=== PATIENT | female | born 1990 | race Caucasian/White ===

== ENCOUNTER 2021-10-17 13:11 | Emergency (ER) | payer OTHER, SELFPAY ==
[2021-10-17 13:20] VITALS: BP 154/94; PULSE 90; RESP 18; TEMP 36.4; O2SAT 100
--- NOTE | 2021-10-17 13:50 | ED.WOUNDLAC ---
HPI - Wound/Laceration General Chief Complaint: Wound/Laceration Stated Complaint: dog bite Source: patient and RN notes reviewed Mode of arrival: ambulatory History of Present Illness HPI narrative: This is a 30-year-old female that presented to urgent care with a dog bite to her left pinky finger. 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 She noted that it had excessive bleeding which prompted her to come to urgent care. There are no signs and symptoms of infection on the affected finger. The patient denies SOB, neurovascular deficiency , pulses and circulation present ,CP, palpitation, extremity numbness, lightheadedness, dizziness, constipation, diarrhea, chills, or fever. Related Data Home Medications Medication Instructions Recorded Confirmed labetalol 10/17/21 sertraline mg 10/17/21 Allergies Allergy/AdvReac Type Severity Reaction Status Date / Time No Known Allergies Allergy Unverified 06/15/17 20:23 Review of Systems Review of Systems: A 14 organ system Review of Systems was performed and pertinent positives included in the HPI, otherwise remaining ROS is negative. [facility] Family History Family History (Updated 10/17/21 @ 13:52 by MIGUEL Vera-C) Other Family history non-contributory Exam Narrative: GENERAL: This is a well-nourished, well-developed patient, in no apparent distress. HEAD: normocephalic, atraumatic. EYES: PERRL. Sclera clear/white. Vision is grossly intact. EARS: External ears normal, auditory canals clear and without drainage, TMs normal without perforation. Hearing grossly intact. NOSE: External nose normal with no obvious nasal discharge, nares without redness, no rhinorrhea. THROAT: Mucous membranes moist, posterior pharynx clear. NECK: Neck supple, non-tender without lymphadenopathy, masses or thyromegaly. CARDIOVASCULAR: Regular rate and rhythm without murmurs, gallops, or rubs. RESPIRATORY: Clear to auscultation. Breath sounds equal bilaterally. No wheezes, rales, or rhonchi. GASTROINTESTINAL: Abdomen soft, non-tender, nondistended. Bowel sounds are active. No hepato-splenomegaly, or palpable masses. No guarding. SKIN: warm, intact with no suspicious lesions or rash, good texture and turgor. NEURO: awake, alert, and oriented to person, place and time. There were no obvious focal neurologic abnormalities. Steady gait EXTREMITIES: Normal range of motion. No edema. No calf tenderness. Negative Homans sign bilaterally. Left pinky finger with a small U-shaped laceration approximately 0.5X0.5 centimeters BACK: Nontender without deformity or crepitance. No flank tenderness. Course Course Emergency Course: Patient site cleaned with wound auto cleaner, triple antibiotic ointment placed on site cover with gauze and [place] Vital Signs Vital signs: Vital Signs Temperature 97.5 F L 10/17/21 13:20 Pulse Rate 90 10/17/21 13:20 Respiratory Rate 18 10/17/21 13:20 Blood Pressure 154/94 H 10/17/21 13:20 Pulse Oximetry 100 10/17/21 13:20 Temperature 97.5 F L 10/17/21 13:20 Pulse Rate 90 10/17/21 13:20 Respiratory Rate 18 10/17/21 13:20 Blood Pressure 154/94 H 10/17/21 13:20 Pulse Oximetry 100 10/17/21 13:20 MDM - Wound/Laceration Differential Diagnosis Differential diagnosis: Likely laceration, abrasion and other (Cellulitis) Discharge Plan Discharge Clinical Impression: Laceration Patient Disposition: Home, Self-Care Condition: Stable Instructions: Antibiotic Form, Animal Bite (ED) Additional Instructions: 1. Follow up with your provider within 1-2 weeks if condition worsens 2. Take prescription medication as ordered Notify your provider of any signs and symptoms of infection: Fever Foul Odor Discharge Heat at the Site: Increase in Pain: Pus Redness and Swelling Clean site with soap and water and apply triple antibio
== END 2021-10-17 13:53 | disposition home or self-care (01) ==
PROVIDERS: Emergency Provider Nurse Practitioner
DX: S61.257A Open bite of left little finger without damage to nail, initial encounter (principal); W54.0XXA Bitten by dog, initial encounter
CPT/HCPCS: 99212; G0463

== ENCOUNTER 2023-06-01 15:44 | Outpatient (CLI) | payer OTHER, SELFPAY ==
--- NOTE | ~2023-06-01 | XR_ITS ---
EXAMINATION: XR chest 2V DATE: 06/01/2023 16:07 INDICATION: Shortness of breath and cough TECHNIQUE: PA and lateral views of the chest were obtained. COMPARISON: None FINDINGS: Consolidation throughout the right middle lobe consistent with pneumonia. No other airspace opacities , pulmonary edema, pleural effusion or pneumothorax. Instantly noted normal variant azygos lobe and f issure at the right upper lung zone. The cardiomediastinal silhouette is normal. Visualized bones and soft tissues are unremarkable. IMPRESSION: 1. Right middle lobe pneumonia. Reviewed, dictated and finalized at location B.
== END 2023-06-01 15:45 | disposition home or self-care (01) ==
DX: R05.9 Cough, unspecified (principal); J18.9 Pneumonia, unspecified organism
CPT/HCPCS: 71046

== ENCOUNTER 2023-06-08 12:42 | Emergency (ER) | payer OTHER, SELFPAY ==
[2023-06-08] VITALS (14 sets, daily range): BP systolic 146–159; BP diastolic 83–99; PULSE 77–97; RESP 16–27; TEMP 36.4; O2SAT 95–97
--- NOTE | ~2023-06-08 | XR_ITS ---
EXAMINATION: XR chest 2V Exam Date/Time: 06/08/2023 17:22 CDT HISTORY: cough, recent pneumonia, SOB Comparison: 06/01/2023. RESULT: Lines, tubes, and devices: None. Lungs and pleura: Persistent right middle lobe airspace disease, with some interval improvement. Cardiomediastinal silhouette: Stable. Other: No acute osseous or upper abdominal finding. IMPRESSION: Improving right middle lobe pneumonia. Reviewed, dictated and finalized at location K.
--- NOTE | 2023-06-08 17:16 | ED.GENADULT ---
HPI - General Adult General Chief complaint: Unspecified <Crystal Chavarria PA-C - Last Filed: 06/08/23 18:23> Stated complaint: pneumonia-symptoms not better <BING Alford Last Filed: 06/08/23 18:23> Time Seen by Provider: 06/08/23 16:56 <BING Alford Last Filed: 06/08/23 18:23> History of Present Illness HPI narrative: 32-year-old female reports for evaluation for a productive cough x2 weeks. Patient states she called her PCP 10 days ago, was started on doxycycline and prednisone. A couple days later she developed hives, then obtained an x-ray which showed pneumonia. Her PCP switched her from doxycycline to Augmentin and azithromycin. States she has not missed any doses and has completed her course of medications other than 1 more dose of Augmentin she needs to take tonight. States she has mildly improved but still has a persistent productive cough which is worse at night. She denies sore throat, congestion, otalgia, chest pain, nausea or vomiting, abdominal pain, diarrhea, fever. Denies recent surgeries or hospitalizations. She lives at home. Patient states her urticaria persisted throughout her course of treatment with the azithromycin and Augmentin. States has been taking Zyrtec and Benadryl with some relief. 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 She denies lip swelling, tongue swelling, difficulty breathing, changes in detergents or lotions, new foods. <BING Alford Last Filed: 06/08/23 18:23> Related Data Home medications: Home Medications Medication Instructions Recorded Confirmed labetalol 100 mg tablet 10/17/21 sertraline 50 mg tablet mg 10/17/21 <BING Alford Last Filed: 06/08/23 18:23> Allergies/adverse reactions: Allergies Allergy/AdvReac Type Severity Reaction Status Date / Time No Known Allergies Allergy Unverified 06/15/17 20:23 <BING Alford Last Filed: 06/08/23 18:23> Review of Systems Review of Systems: CONSTITUTIONAL: Denies fever, chills EYES: Denies visual changes, redness, or discharge. ENT: Denies rhinorrhea, congestion, sore throat, or otalgia. CARDIOVASCULAR: Denies chest pain, palpitations, or edema. RESPIRATORY: See HPI GASTROINTESTINAL: Denies abdominal pain, nausea, vomiting, or diarrhea. GENITOURINARY: Denies dysuria or hematuria. SKIN: Denies rash or itching. MUSCULOSKELETAL: Denies back pain, joint pain, or myalgia. NEUROLOGIC: Denies headache, numbness, dizziness, or weakness. PSYCHIATRIC: Denies anxiety or depression. <Crystal Chavarria PA-C - Last Filed: 06/08/23 18:23> [facility] Family History Family History: Family History Other Family history non-contributory <Crystal Chavarria PA-C - Last Filed: 06/08/23 18:23> Exam Narrative: GENERAL: Well-appearing, in no acute distress. Patient resting comfortably in exam bed. She is pleasant and conversational. Speaking in full sentences. HEAD: Normocephalic EYES: PERRLA ENT: Nares clear. Mucous membranes moist. Oropharynx without tonsillar hypertrophy exudate or other lesions. Bilateral TMs are gordillo and nonbulging. NECK: Supple. CHEST: No respiratory distress. Clear to auscultation, no adventitious breath sounds. Patient satting 97% on room air. HEART: Regular rate and rhythm. No murmur heard. Normal peripheral pulses. EXTREMITIES: Normal range of motion. No edema. SKIN: Warm, dry, no rash. NEURO: No focal deficits. Alert and oriented x3. PSYCH: Normal mood and affect. <Crystal Chavarria PA-C - Last Filed: 06/08/23 18:23> Course EFFICIENCY MANAGER/PA Physician Supervision For this patient encounter, I reviewed the EFFICIENCY MANAGER or PA documentation, treatment plan, and medical decision making and I had [id number] time with this patient. I performed all aspects of the MDM as documented. <Concepcion Womack MD - Last Filed: 06/09/23
[2023-06-08 17:34] LABS: Basophils Absolute Auto 0.1 K/mm3 (0.0-0.1); Basophils Percent Auto 0.5 % (0.2-1.2); Eosinophils Absolute Auto 0.3 K/mm3 (0-0.3); Eosinophils Percent Auto 2.3 % (0-4.4); Hematocrit 39.5 % (37.0-47.0); Hemoglobin 12.2 g/dL (12.0-15.0); Immature Granulocyte Absolute 0.09 K/mm3 (0.00-0.031); Immature Granulocyte Percent A 0.7 % (0-0.5); Lymphocytes Absolute Auto 2.46 K/mm3 (0.9-3.2); Mean Corpuscular HGB Conc 30.9 g/dl (32-36); Mean Corpuscular Hemoglobin 27.7 pg (26-34); Mean Corpuscular Volume 89.6 fl (80-100); Mean Platelet Volume 9.2 fl (7.4-10.4); Monocytes Absolute Auto 0.7 K/mm3 (0.1-0.6); Monocytes Percent Auto 5.9 % (2.6-8.5); Neutrophils Absolute Auto 8.7 K/mm3 (1.3-6.7); Neutrophils Percent Auto 70.6 % (45.5-73.1); Platelet Count Result 427 k/mm3 (150-375); Red Blood Count 4.41 M/mm3 (4.2-5.4); Red Cell Distribution Width 14.5 % (11.5-14.5); White Blood Count 12.3 K/mm3 (4.5-10.0)
[2023-06-08 17:45] LABS: Anion Gap 5 mmol/L (8-16); Blood Urea Nitrogen 15 mg/dL (7-17); Calcium 8.7 mg/dL (8.4-10.2); Carbon Dioxide 31 mmol/L (22-30); Chloride 98 mmol/L (98-107); Estimated CRCL calculation 136 ml/min; Estimated Glomerular Filt Rate > 60; Glucose 88 mg/dL (65-110); Sodium 134 mmol/L (137-145)
--- NOTE | 2023-06-08 18:02 | PC.NURSE ---
JOESPH Christensen at bedside at this time.
[2023-06-08 18:09] LABS: Influenza A QL RT-PCR Negative (Negative); Influenza B QL RT-PCR Negative (Negative); SARS-CoV-2 RNA PCR Negative (Negative)
== END 2023-06-08 18:57 | disposition home or self-care (01) ==
PROVIDERS: Emergency Provider Physician Assistant
DX: J18.9 Pneumonia, unspecified organism (principal); Z20.822 Contact with and (suspected) exposure to COVID-19
CPT/HCPCS: 36415; 71046; 80048; 85025; 87636; 99283